=== PATIENT | female | born 1940 | race Two or more races ===

== ENCOUNTER 2022-12-15 07:29 | Outpatient (CLI) | payer OTHER | END 2022-12-15 07:33 | disposition home or self-care (01) | LOC: MRI 07:29 | PROVIDERS: ATTEND Psychiatry & Neurology Clinical Neurophysiology | DX: D33.3 Benign neoplasm of cranial nerves (principal) | CPT/HCPCS: 70553; Q9965; 70552 ==

== ENCOUNTER 2022-12-15 08:14 | Outpatient (CLI) | payer OTHER | END 2022-12-15 08:19 | disposition home or self-care (01) | LOC: LAB 08:14 | DX: D33.3 Benign neoplasm of cranial nerves (principal) ==